=== PATIENT | male | born 1995 | race Caucasian/White ===

== ENCOUNTER 2017-07-15 12:26 | Emergency (ER) | payer OTHER ==
[~2017-07-15] VITALS: Ht 175.3 cm; Wt 122.5 kg
[2017-07-15 12:33] VITALS: BP 161/69
== END 2017-07-15 12:43 | disposition home or self-care (01) ==
LOC: ER 12:32
DX: B97.89 Other viral agents as the cause of diseases classified elsewhere (principal); J02.8 Acute pharyngitis due to other specified organisms; L30.9 Dermatitis, unspecified
CPT/HCPCS: 99281; A4606; Z7610; Z7502

== ENCOUNTER 2018-08-26 20:09 | Emergency (ER) | payer OTHER ==
[~2018-08-26] VITALS: Ht 177.8 cm; Wt 117.9 kg
--- NOTE | 2018-08-26 22:19 | NUR ---
BIBS FOR C/O ON AND OFF ABD PAIN NAD NAUSEA X 2-3DAYS. + DYSURIA AND DRIBBING. - HAMATURIA. URINE COLLECTED AND SENT TO THE [facility]. WILL CONT TO MONITOR ,
[2018-08-26] MEDS ORDERED: IBUPROFEN 600 MG TABLET PO ONE ×2 (22:30→22:31)
[2018-08-26 22:31] LABS: APPEARANCE,URINE Clear (CLEAR); BILIRUBIN,URINE Negative (NEGATIVE); BLOOD, URINE Negative Ery/uL (NEGATIVE); COLOR,URINE Yellow (YELLOW); KETONES,URINE Negative (NEGATIVE); LEUKOCYTE ESTERASE ,URINE Negative (NEGATIVE); NITRITE, URINE Negative (NEGATIVE); PH,URINE 6.5 (5.0-8.0); PROTEIN,URINE Negative (NEGATIVE); UGLUCOSE Negative (NEGATIVE); UROBILINOGEN,URINE 0.2 EU/dL (0.2)
[2018-08-26 22:41] LABS: BASOPHILS # (AUTO) 0.1 /CMM (0.0-0.2); BASOPHILS % (AUTO) 0.6 % (0.0-2.0); EOSINOPHILS % (AUTO) 0.3 % (0.0-6.0); HEMATOCRIT 50 % (39-51); LYMPHOCYTES # (AUTO) 1.9 /CMM (0.8-4.8); LYMPHOCYTES % (AUTO) 18.2 % (20.0-44.0); MEAN CORPUSCULAR HGB CONC 34 g/dl (31.0-36.0); MEAN CORPUSCULAR VOLUME 83 fL (80-96); MONOCYTES # (AUTO) 0.9 /CMM (0.1-1.30); MONOCYTES % (AUTO) 8.4 % (2.0-12.0); NEUTROPHILS # (AUTO) 7.8 /CMM (1.8-8.9); NEUTROPHILS % (AUTO) 72.5 % (43.0-81.0); PLATELET COUNT (AUTO) 243 /CMM (150-450); RED BLOOD CELL COUNT(AUTO) 6.04 MIL/uL (4.5-6.0); WHITE BLOOD COUNT (AUTO) 10.7 K/uL (4.3-11.0)
[2018-08-26 22:49] LABS: CALCIUM, SERUM 9.2 mg/dL (8.5-10.1); CREATININE 1.1 mg/dL (0.6-1.3)
[2018-08-26 22:55] LABS: ALBUMIN 4.3 g/dL (3.4-5.0); BILIRUBIN,DIRECT 0.1 mg/dL (0.0-0.2); BILIRUBIN,TOTAL 0.3 mg/dL (0.2-1.0); TOTAL PROTEIN, SERUM 8.1 g/dL (6.4-8.2)
[2018-08-26] MEDS ORDERED: CEFTRIAXONE 500 MG VIAL IM ONE (23:30)
[2018-08-26] MEDS ORDERED: AZITHROMYCIN 250 MG TABLET PO ONE (23:30)
[2018-08-26] MEDS ORDERED: AZITHROMYCIN 250 MG TABLET ONE (23:37)
[2018-08-26] MEDS ORDERED: CEFTRIAXONE 500 MG VIAL ONE (23:37)
[2018-08-26] MEDS ORDERED: LIDOCAINE 1% INJ 50 ML MDV IJ ONE (23:39)
--- NOTE | 2018-08-26 23:59 | NUR ---
Patient discharged to home in stable condition. Written and verbal after care instructions given. Patient verbalizes understanding of instruction.
[2018-08-27 02:09] VITALS: BP 129/77
== END 2018-08-27 | disposition home or self-care (01) ==
LOC: ER 20:15
DX: N34.2 Other urethritis (principal)
CPT/HCPCS: 36415; 80048; 80076; 81001; 83690; 85025; 87491; 87591; 96372; 99283; J0696; J3490; 81000-TC